=== PATIENT | female | born 2005 | race Caucasian/White ===

== ENCOUNTER 2023-06-20 21:22 | Emergency (ER) | payer OTHER | END 2023-06-20 22:52 | disposition home or self-care (01) | LOC: CSHERS 21:22 | DX: S09.90XA Unspecified injury of head, initial encounter (principal); M79.641 Pain in right hand; F17.290 Nicotine dependence, other tobacco product, uncomplicated; X58.XXXA Exposure to other specified factors, initial encounter ==

== ENCOUNTER 2023-06-30 16:55 | Emergency (ER) | payer OTHER ==
[2023-06-30] MEDS ORDERED: Ibuprofen 200 MG TAB ONE (17:48)
== END 2023-06-30 18:13 | disposition home or self-care (01) ==
LOC: CSHERS 16:55
DX: S60.511A Abrasion of right hand, initial encounter (principal); F17.290 Nicotine dependence, other tobacco product, uncomplicated; W22.01XA Walked into wall, initial encounter